=== PATIENT | female | born 1990 | race Caucasian/White ===

== ENCOUNTER 2020-11-21 05:57 | Day surgery (SDC) | payer OTHER ==
[2020-11-18 08:54] VITALS: BMI 19.2
[2020-11-21] MEDS ORDERED: BUPIVACAINE HCL/PF 2.5 MG/ML - 30 ML VIAL IJ ONE (07:17)
[2020-11-21] MEDS ORDERED: EPINEPHrine 1:1,000 1 MG/1 ML - 30ML VIAL (INJECTION) ONE (07:17)
[2020-11-21] MEDS ORDERED: MIDAZOLAM HCL 2 MG/2 ML SINGLE DOSE VIAL ONE (07:29)
[2020-11-21] MEDS ORDERED: SUCCINYLCHOLINE CHLORIDE 200 MG/10 ML SYRINGE ONE (07:47)
[2020-11-21] MEDS ORDERED: PROPOFOL 20 ML ONE (07:47)
[2020-11-21] MEDS ORDERED: DESFLURANE GAS 240 ML BOTTLE IH ONE (07:55)
[2020-11-21] MEDS ORDERED: ceFAZolin SODIUM 1 GM VIAL ONE (08:00)
[2020-11-21] MEDS ORDERED: KETOROLAC TROMETHAMINE 30 MG/1 ML VIAL ONE (08:03)
[2020-11-21] MEDS ORDERED: ONDANSETRON 4 MG/2 ML VIAL ONE ×2 (08:03→08:54)
[2020-11-21] MEDS ORDERED: DEXAMETHASONE SOD PHOSPHATE 4 MG/1 ML VIAL ONE (08:03)
[2020-11-21] MEDS ORDERED: BUPIVACAINE HCL/PF 0.25% (2.5MG/ML) 10 ML VIAL IJ ONE (08:24)
[2020-11-21] MEDS ORDERED: ONDANSETRON 4 MG/2 ML VIAL IVPUSH PRN (08:39)
[2020-11-21] MEDS ORDERED: oxyCODONE HCL 5 MG TABLET PO PRN (08:39)
[2020-11-21] MEDS ORDERED: LACTATED RINGERS SOLUTION 1,000 ML IV SCH (08:45)
[2020-11-21 10:14] VITALS: TEMP 97.6
[2020-11-21 11:17] VITALS: BP 124/71; PULSE 62
== END 2020-11-21 11:30 | disposition home or self-care (01) ==
LOC: FASU 05:57
PROVIDERS: ATTEND Orthopaedic Surgery
PROC: 0SBC4ZZ Excision of Right Knee Joint, Percutaneous Endoscopic Approach (ICD-10-PCS; 2020-11-21)
PROC: 0SBC4ZZ Excision of Right Knee Joint, Percutaneous Endoscopic Approach (ICD-10-PCS; 2020-11-21)
PROC: 0SBC4ZZ Excision of Right Knee Joint, Percutaneous Endoscopic Approach (ICD-10-PCS; 2020-11-21)
PROC: 0SBC4ZZ Excision of Right Knee Joint, Percutaneous Endoscopic Approach (ICD-10-PCS; principal; 2020-11-21 08:13)
DX: S83.241A Other tear of medial meniscus, current injury, right knee, initial encounter (principal); S83.281A Other tear of lateral meniscus, current injury, right knee, initial encounter; M65.861 Other synovitis and tenosynovitis, right lower leg; S83.8X1A Sprain of other specified parts of right knee, initial encounter; X58.XXXA Exposure to other specified factors, initial encounter; Y92.9 Unspecified place or not applicable; Y93.9 Activity, unspecified
CPT/HCPCS: 81025; 88304-TC; 94760

== ENCOUNTER 2024-07-29 17:59 | Observation (INO) | payer OTHER ==
[2024-07-29 18:35] LABS: HCG,QUALITATIVE URINE Negative
[2024-07-29 19:05] LABS: EPITHELIAL CELLS 0-5 /hpf
[2024-07-29] MEDS ORDERED: ACETAMINOPHEN INJECTION 100 ML ONE (19:16)
[2024-07-29] MEDS ORDERED: KETOROLAC TROMETHAMINE 30 MG/1 ML VIAL ONE (19:16)
[2024-07-29] MEDS: SODIUM CHLORIDE 0.9% 500 ML INFUS.BAG IV ONE (19:19)
[2024-07-29] MEDS: ACETAMINOPHEN 1000 MG/100 ML BAG IVPB ONE (19:20)
[2024-07-29] MEDS: KETOROLAC TROMETHAMINE 30 MG/1 ML VIAL IVPUSH ONE (19:20)
[2024-07-29 19:40] LABS: HEMOGLOBIN 13.9 G/dL (10.7-15.3); MCH 31.5 pg (25.7-33.7); MEAN CELL VOLUME 92.7 fl (80-96); MEAN PLT VOLUME 9.3 fl (7.5-11.1); PLATELET COUNT 248.2 10^3/uL (134-434); RBC 4.42 10^6/uL (3.60-5.2); WHITE BLOOD COUNT 11.2 10^3/uL (4.0-10.8)
[2024-07-29 19:52] LABS: ALK PHOS 47 U/L (45-117); ANION GAP 11 mmol/L (4-13); BILIRUBIN,TOTAL 0.6 mg/dl (0.2-1); CALCIUM 10.1 mg/dl (8.5-10.1); CHLORIDE 104 mmol/L (98-107); CO2 23 mmol/L (21-32); CREATININE 1.1 mg/dl (0.6-1.3); GLUCOSE,RANDOM 87 mg/dl (74-106); POTASSIUM 3.7 mmol/L (3.5-5.1); SGOT/AST 20 U/L (15-37); SGPT/ALT 11 U/L (7-52); SODIUM 138 mmol/L (136-145)
[2024-07-29] MEDS ORDERED: ONDANSETRON 4 MG/2 ML VIAL ONE (20:25)
[2024-07-29] MEDS ORDERED: TAMSULOSIN HCL 0.4 MG CAP ONE (20:36)
[2024-07-29] MEDS: ONDANSETRON 4 MG/2 ML VIAL IVPB ONE (20:36)
[2024-07-29] MEDS: TAMSULOSIN HCL 0.4 MG CAP PO ONE (20:39)
[2024-07-29 20:53] LABS: PLATELET ESTIMATE ADEQUATE
[2024-07-29 23:31] VITALS: BMI 20.7
[2024-07-29] MEDS: LACTATED RINGERS SOLUTION 1000 ML INFUS.BAG IV ONE (23:43)
[2024-07-30] MEDS: CEFTRIAXONE 1 G/50 ML PREMIX 50 ML IVPB ONE (00:05)
[2024-07-30] MEDS: CEFTRIAXONE 1,000 MG in DEXTROSE 5%-WATER - 50 ML IVPB ONE (00:05)
[2024-07-30] MEDS ORDERED: ONDANSETRON 4 MG/2 ML VIAL IVPUSH PRN (00:30)
[2024-07-30] MEDS: KETOROLAC TROMETHAMINE 15 MG/ML VIAL IVPUSH ONE (01:16)
[2024-07-30] MEDS: SODIUM CHLORIDE 1,000 ML IV SCH (01:30)
[2024-07-30] MEDS: ACETAMINOPHEN 1000 MG/100 ML BAG IVPB PRN (06:08)
[2024-07-30] MEDS ORDERED: ACETAMINOPHEN 1000 MG/100 ML BAG IVPB PRN (08:00)
[2024-07-30] MEDS: KETOROLAC TROMETHAMINE 30 MG/1 ML VIAL IVPUSH PRN (08:14)
[2024-07-30 08:17] LABS: CALCIUM 8.3 mg/dl (8.5-10.1); CREATININE 1.1 mg/dl (0.6-1.3); POTASSIUM 3.5 mmol/L (3.5-5.1)
[2024-07-30 09:26] LABS: BASO % 0.4 % (0-2.0); EOS % 0.9 % (0-4.5); HEMATOCRIT 33.8 % (32.4-45.2); HEMOGLOBIN 11.8 GM/dL (10.7-15.3); LYMPH % 25.1 % (8-40); MCH 31.9 pg (25.7-33.7); MCHC 34.8 g/dl (32.0-36.0); MEAN CELL VOLUME 91.5 fl (80-96); MEAN PLT VOLUME 8.8 fl (7.5-11.1); MONO % 10.2 % (3.8-10.2); NEUT % 63.4 % (42.8-82.8); PLATELET COUNT 203 10^3/uL (134-434); RDW 12.7 % (11.6-15.6); WHITE BLOOD COUNT 8.5 K/mm3 (4.0-10.0)
[2024-07-31] MEDS ORDERED: MIDAZOLAM HCL 2 MG/2 ML SINGLE DOSE VIAL ONE (08:28)
[2024-07-31] MEDS ORDERED: PROPOFOL 20 ML ONE (08:28)
[2024-07-31] MEDS: ceFAZolin SODIUM 1 GM VIAL IVPB ONE (08:42)
[2024-07-31] MEDS ORDERED: KETOROLAC TROMETHAMINE 30 MG/1 ML VIAL IVPUSH PRN (09:16)
[2024-07-31] MEDS ORDERED: ONDANSETRON 4 MG/2 ML VIAL IVPUSH PRN (09:16)
[2024-07-31] MEDS: ACETAMINOPHEN 1000 MG/100 ML BAG IVPB PRN (09:25)
[2024-07-31] MEDS ORDERED: LACTATED RINGERS SOLUTION 1,000 ML IV SCH (10:00)
[2024-07-31] MEDS ORDERED: CEFTRIAXONE 1 G/50 ML PREMIX 50 ML IVPB SCH (10:00)
[2024-07-31] MEDS: SODIUM CHLORIDE 1,000 ML IV SCH (10:05)
[2024-07-31 11:17] VITALS: BP 120/93; PULSE 58; RESP 18; TEMP 98.2
[2024-07-31] MEDS: CEFTRIAXONE 1 G/50 ML PREMIX 50 ML IVPB SCH (11:53)
== END 2024-07-31 16:25 | disposition home or self-care (01) ==
LOC: FER 17:59 → FM/S 21:52 → UNDOADMOB 22:53 → J6S 07-30 17:28
PROVIDERS: ADMIT Internal Medicine; ATTEND Internal Medicine
PROC: 3E033NZ Introduction of Analgesics, Hypnotics, Sedatives into Peripheral Vein, Percutaneous Approach (ICD-10-PCS; 2024-07-29)
PROC: 3E033GC Introduction of Other Therapeutic Substance into Peripheral Vein, Percutaneous Approach (ICD-10-PCS; 2024-07-29)
PROC: 3E0333Z Introduction of Anti-inflammatory into Peripheral Vein, Percutaneous Approach (ICD-10-PCS; 2024-07-29)
PROC: 3E0337Z Introduction of Electrolytic and Water Balance Substance into Peripheral Vein, Percutaneous Approach (ICD-10-PCS; 2024-07-29)
PROC: BT1DZZZ Fluoroscopy of Right Kidney, Ureter and Bladder (ICD-10-PCS; principal; 2024-07-31 08:00)
DX: N13.2 Hydronephrosis with renal and ureteral calculous obstruction (principal); R10.31 Right lower quadrant pain; Z87.442 Personal history of urinary calculi; D72.829 Elevated white blood cell count, unspecified
CPT/HCPCS: 36415; 74176-TC; 76000-TC-FY; 80048; 80053; 81003; 81015; 84703; 85025; 85027; 94760; 99285-25; C2617; G0378; J0131